=== PATIENT | female | born 1975 | race African-American/Black ===

== ENCOUNTER → 2019-08-08 | Outpatient (CLI) | payer OTHER ==
[~2019-08-08] VITALS: Ht 162.6 cm; Wt 127.0 kg
[~2019-08-08] MED LIST: ADENOSINE 107 MG in GIVE UN-DILUTED 0 ML IV ONE; ADENOSINE 90 MG/30 ML INJ IV ONE
== END | disposition home or self-care (01) ==
LOC: Rad HDHVI 09:07
PROVIDERS: ATTEND Internal Medicine Cardiovascular Disease
DX: I11.9 Hypertensive heart disease without heart failure (principal); E11.9 Type 2 diabetes mellitus without complications; R00.2 Palpitations
CPT/HCPCS: 78452; 93005; 93306; 96374; 96375; A9500; J0153

== ENCOUNTER 2022-12-08 18:51 | Inpatient (IN) | payer OTHER, MEDICAID ==
[~2022-12-08] VITALS: Ht 175.3 cm; Wt 115.0 kg
[2022-12-08 20:05] LABS: Basophils # (auto) 0 10 ^3/uL (0-0.2); Basophils % (auto) 0.3 % (0.0-2.0); Eosinophils # (auto) 0 10 ^3/uL (0-0.8); Hematocrit 39.2 % (36.0-46.0); Hemoglobin 13.4 g/dL (12.2-16.2); Lymphocytes # (auto) 1.8 10 ^3/uL (0.4-5.4); Lymphocytes % (auto) 10.6 % (10.0-50.0); Mean Corpuscular Hemoglobin 30.2 pg (28.0-32.0); Mean Corpuscular Hgb Conc. 34.2 g/dL (32.0-36.0); Mean Corpuscular Volume 88.3 fL (80.0-100.0); Monocytes # (auto) 1.4 10 ^3/uL (0-1.3); Monocytes % (auto) 8.5 % (0.0-12.0); Neutrophils # (auto) 13.5 10 ^3/uL (1.6-8.6); Neutrophils % (auto) 80.6 % (37.0-80.0); Red Blood Cells 4.45 10^6/uL (4.0-5.20); Red Cell Distribution Width 13.6 % (11.8-14.3); White Blood Cell 16.8 10^3/uL (4.4-10.8)
[2022-12-08 20:27] LABS: Alanine Aminotransferase 17 U/L (13-56); Albumin 3.1 g/dL (3.4-5.0); Anion Gap 11 (5-15); Aspartate Aminotransferase 8 U/L (15-37); BUN/Creatinine Ratio 19.9 (10.0-20.0); Blood Urea Nitrogen 32 mg/dL (7-18); Carbon Dioxide 23 mmol/L (21-32); Chloride 99 mmol/L (98-107); GFR African American 44 mL/min; GFR Non-African American 36 mL/min; Glucose 399 mg/dL (74-106); Salicylate < 1.7 mg/dL (2.8-20.0); Sodium 133 mmol/L (136-145)
[2022-12-08 20:29] LABS: Lactic Acid w/Reflex 3.1 mmol/L (0.4-2.0)
[2022-12-08 20:52] LABS: Alkaline Phosphatase 40 U/L (45-117); Bilirubin, Total 0.9 mg/dL (0.2-1.0); Calcium 8.7 mg/dL (8.5-10.1); Total Protein 7.5 g/dL (6.4-8.2)
[2022-12-08 21:12] LABS: Acetaminophen < 2.0 ug/mL (10-30); Blood Alcohol < 3.0 mg/dL (0-5)
[2022-12-09] VITALS (24 sets, daily range): BP systolic 105–172; BP diastolic 50–92
[2022-12-09] MEDS ORDERED: LACTATED RINGER S IV ONE (04:15)
[2022-12-09] MEDS ORDERED: VANCOMYCIN 1GM/250ML 250 ML IV ONE (04:15)
[2022-12-09] MEDS ORDERED: CEFTRIAXONE SODIUM 2 GM in D5W 5% 100 ML IV ONE (04:15)
[2022-12-09] MEDS ORDERED: ACYCLOVIR SOD 50MG/ML 800 MG in SODIUM CHL 0.9% 250 ML IV ONE (04:15)
[2022-12-09] MEDS ORDERED: cefTRIAXone 1GM/50ML D5W 50 ML IV ONE ×2 (04:30)
[2022-12-09 06:54] LABS: Urine Bacteria NONE SEEN /hpf (None Seen); Urine Blood 1+ /uL (Negative); Urine Hyaline Cast FEW /lpf (0 - 2); Urine Mucus FEW (None Seen); Urine Specific Gravity 1.028 (1.001-1.035); Urine WBC 4 /hpf (0 - 5)
[2022-12-09 07:18] LABS: Alcohol, Urine < 3.0 mg/dL (0-10); Amphetamine Screen, Urine NEGATIVE (NEGATIVE); Barbiturate Scree,Urine NEGATIVE (NEGATIVE); Benzodiazephine Screen, Urine NEGATIVE (NEGATIVE); Cannabinoid Screen, Urine NEGATIVE (NEGATIVE); Cocaine Screen, Urine NEGATIVE (NEGATIVE); Opiate Scree,Urine NEGATIVE (NEGATIVE); Phencyclidine Screen, Urine NEGATIVE (NEGATIVE)
[2022-12-09] MEDS ORDERED: DEXTROSE (50%) 50ML SYRG IV PRN (09:00)
[2022-12-09] MEDS ORDERED: VANCOMYCIN PER PHARMACY 0 MG IV SCH (09:15)
[2022-12-09] MEDS ORDERED: NITROGLYCERIN 0.4 MG SL TAB SL PRN (09:15)
[2022-12-09] MEDS ORDERED: MORPHINE SULFATE INJ 2 MG/ml SYRG IV PRN (09:15)
[2022-12-09] MEDS ORDERED: DOCUSATE SOD 100 MG CAP PO PRN (09:15)
[2022-12-09 09:39] LABS: Basophils # (auto) 0.1 10 ^3/uL (0-0.2); Basophils % (auto) 0.6 % (0.0-2.0); Eosinophils # (auto) 0 10 ^3/uL (0-0.8); Eosinophils % (auto) 0.1 % (0.0-7.0); Hematocrit 37.2 % (36.0-46.0); Hemoglobin 12.4 g/dL (12.2-16.2); Lymphocytes # (auto) 1.9 10 ^3/uL (0.4-5.4); Lymphocytes % (auto) 15.2 % (10.0-50.0); Mean Corpuscular Hemoglobin 30.1 pg (28.0-32.0); Mean Corpuscular Hgb Conc. 33.4 g/dL (32.0-36.0); Mean Corpuscular Volume 90.1 fL (80.0-100.0); Monocytes # (auto) 1.2 10 ^3/uL (0-1.3); Monocytes % (auto) 9.4 % (0.0-12.0); Neutrophils # (auto) 9.2 10 ^3/uL (1.6-8.6); Neutrophils % (auto) 74.7 % (37.0-80.0); Nucleated Red Blood Cells % 0.1 %; Red Blood Cells 4.12 10^6/uL (4.0-5.20); Red Cell Distribution Width 13.2 % (11.8-14.3); White Blood Cell 12.3 10^3/uL (4.4-10.8)
[2022-12-09 09:56] LABS: INR 1.03 (0.9-1.15); Partial Thromboplastin Time 24.7 sec (24.6-33.4)
[2022-12-09] MEDS: INSULIN LANTUS (GLARGINE) 1 /0.01ml (100units/ml) SC SCH ×2 (10:00→11:50)
[2022-12-09] MEDS ORDERED: LORazepam 2MG/ML-1ML VIAL IV PRN (10:15)
[2022-12-09 10:18] LABS: BUN/Creatinine Ratio 23.3 (10.0-20.0); Calcium 7.6 mg/dL (8.5-10.1); Potassium 3.8 mmol/L (3.5-5.1)
[2022-12-09] MEDS: ACCU-CHEK COMFORT CURVE STRIP VI SCH ×3 (11:37→19:53)
[2022-12-09] MEDS: InsuLIN REG 1unit/0.01ml Soln (100units/ml) SC SCH ×3 (11:50→19:54)
[2022-12-09] MEDS: SODIUM CHLORIDE 0.9% 1,000 ML IV SCH ×2 (11:51→21:22)
[2022-12-09] MEDS ORDERED: INSU1INJ3 SC (16:31)
[2022-12-09] MEDS ORDERED: METF-371 PO (16:31)
[2022-12-09] MEDS ORDERED: TIZA4TAB7 PO (16:31)
[2022-12-09] MEDS ORDERED: PREG-110 PO (16:31)
[2022-12-09] MEDS ORDERED: HYDR-4072 PO (16:31)
[2022-12-09] MEDS ORDERED: TRAZ50TA2 PO (16:31)
[2022-12-09] MEDS: ACETAMINOPHEN 325 MG TAB PO PRN (17:01)
[2022-12-10] VITALS (17 sets, daily range): BP systolic 98–157; BP diastolic 35–88
[2022-12-10] MEDS: ACCU-CHEK COMFORT CURVE STRIP VI SCH ×6 (00:07→20:00)
[2022-12-10] MEDS: InsuLIN REG 1unit/0.01ml Soln (100units/ml) SC SCH ×6 (00:08→21:19)
[2022-12-10] MEDS: ACETAMINOPHEN 325 MG TAB PO PRN (01:10)
[2022-12-10 04:40] LABS: Basophils # (auto) 0.1 10 ^3/uL (0-0.2); Basophils % (auto) 0.6 % (0.0-2.0); Eosinophils # (auto) 0 10 ^3/uL (0-0.8); Eosinophils % (auto) 0.3 % (0.0-7.0); Hematocrit 31.7 % (36.0-46.0); Hemoglobin 11.3 g/dL (12.2-16.2); Lymphocytes # (auto) 1.8 10 ^3/uL (0.4-5.4); Lymphocytes % (auto) 18.7 % (10.0-50.0); Mean Corpuscular Hemoglobin 31.3 pg (28.0-32.0); Mean Corpuscular Hgb Conc. 35.7 g/dL (32.0-36.0); Mean Corpuscular Volume 87.6 fL (80.0-100.0); Monocytes # (auto) 0.7 10 ^3/uL (0-1.3); Monocytes % (auto) 7.2 % (0.0-12.0); Neutrophils % (auto) 73.2 % (37.0-80.0); Red Blood Cells 3.62 10^6/uL (4.0-5.20); Red Cell Distribution Width 13.2 % (11.8-14.3); White Blood Cell 9.5 10^3/uL (4.4-10.8)
[2022-12-10 04:57] LABS: Calcium 7.4 mg/dL (8.5-10.1); Potassium 3.4 mmol/L (3.5-5.1)
[2022-12-10] MEDS: SODIUM CHLORIDE 0.9% 1,000 ML IV SCH ×2 (06:21→16:06)
[2022-12-10] MEDS: cefTRIAXone 1GM/50ML D5W 50 ML IV SCH (08:06)
[2022-12-10] MEDS: INSULIN LANTUS (GLARGINE) 1 /0.01ml (100units/ml) SC SCH (08:08)
[2022-12-10] MEDS ORDERED: ONDANSETRON HCL 4 MG/2 ML VIAL IV PRN (12:45)
[2022-12-10] MEDS ORDERED: HYDROcodone-ACET 10/325MG TAB PO PRN (12:45)
[2022-12-10] MEDS ORDERED: POTASSIUM CHL 20 Meq TABLET PO ONE (18:15)
[2022-12-10] MEDS ORDERED: INSULIN LANTUS (GLARGINE) 1 /0.01ml (100units/ml) SC ONE (18:15)
[2022-12-11] MEDS: InsuLIN REG 1unit/0.01ml Soln (100units/ml) SC SCH ×4 (00:17→12:05)
[2022-12-11] MEDS: ACCU-CHEK COMFORT CURVE STRIP VI SCH ×4 (00:18→12:03)
[2022-12-11] MEDS: SODIUM CHLORIDE 0.9% 1,000 ML IV SCH ×2 (04:04→11:18)
[2022-12-11 05:00] VITALS: BP 148/68
[2022-12-11 06:17] LABS: BUN/Creatinine Ratio 19.6 (10.0-20.0); Calcium 7.6 mg/dL (8.5-10.1); Potassium 3.5 mmol/L (3.5-5.1)
[2022-12-11 06:35] LABS: Basophils # (auto) 0 10 ^3/uL (0-0.2); Basophils % (auto) 0.3 % (0.0-2.0); Eosinophils # (auto) 0 10 ^3/uL (0-0.8); Eosinophils % (auto) 0.6 % (0.0-7.0); Hematocrit 32.1 % (36.0-46.0); Hemoglobin 11.4 g/dL (12.2-16.2); Lymphocytes # (auto) 1.5 10 ^3/uL (0.4-5.4); Lymphocytes % (auto) 18.1 % (10.0-50.0); Mean Corpuscular Hemoglobin 31.2 pg (28.0-32.0); Mean Corpuscular Hgb Conc. 35.7 g/dL (32.0-36.0); Mean Corpuscular Volume 87.4 fL (80.0-100.0); Monocytes # (auto) 0.5 10 ^3/uL (0-1.3); Monocytes % (auto) 6.3 % (0.0-12.0); Neutrophils # (auto) 6.3 10 ^3/uL (1.6-8.6); Neutrophils % (auto) 74.7 % (37.0-80.0); Nucleated Red Blood Cells % 0.1 %; Red Blood Cells 3.67 10^6/uL (4.0-5.20); Red Cell Distribution Width 13.2 % (11.8-14.3); White Blood Cell 8.4 10^3/uL (4.4-10.8)
[2022-12-11 08:32] VITALS: BP 155/83
[2022-12-11] MEDS: cefTRIAXone 1GM/50ML D5W 50 ML IV SCH (09:15)
[2022-12-11] MEDS ORDERED: INSULIN LANTUS (GLARGINE) 1 /0.01ml (100units/ml) SC SCH (10:00)
[2022-12-11] MEDS ORDERED: AZIT250T8 PO (12:56)
[2022-12-11 13:00] VITALS: BP 178/66
[2022-12-11] MEDS ORDERED: INSU1INJ3 SC (13:56)
== END 2022-12-11 14:58 | disposition home or self-care (01) | DRG 70 ==
LOC: EDBD 18:51 → ER 19:01 → TELE 12-09 09:15 → DOU IN ICU 12-09 10:50 → TELE-EAST 12-10 22:30
PROVIDERS: ADMIT Internal Medicine; ATTEND Internal Medicine
DX: G93.41 Metabolic encephalopathy (principal); E11.00 Type 2 diabetes mellitus with hyperosmolarity without nonketotic hyperglycemic-hyperosmolar coma (NKHHC); G04.90 Encephalitis and encephalomyelitis, unspecified; E87.1 Hypo-osmolality and hyponatremia; E87.20 Acidosis, unspecified; N17.9 Acute kidney failure, unspecified; Z68.41 Body mass index [BMI] 40.0-44.9, adult; E66.01 Morbid (severe) obesity due to excess calories; I10 Essential (primary) hypertension; E87.6 Hypokalemia; Z79.4 Long term (current) use of insulin; Z88.0 Allergy status to penicillin; Z88.1 Allergy status to other antibiotic agents; Z91.010 Allergy to peanuts; Z88.8 Allergy status to other drugs, medicaments and biological substances
CPT/HCPCS: 36415; 70450; 70551; 71045; 80048; 80053; 80307; 80320; 80329; 81001; 82010; 82962; 83605; 84484; 85025; 85610; 85730; 87040; 87081; 93005; 93306; 96365; 96366; 99291; G0378; J0696; J1815; J7060

== ENCOUNTER 2022-12-11 18:12 | Emergency (ER) | payer OTHER, MEDICAID ==
[~2022-12-11 18:12] MED LIST changes: -ADENOSINE 107 MG in GIVE UN-DILUTED 0 ML IV ONE; -ADENOSINE 90 MG/30 ML INJ IV ONE; +AZIT-81 PO; +HYDR-4072 PO; +INSU1INJ3 SC; +METF-371 PO; +PREG-110 PO; +TIZA-142 PO; +TRAZ-227 PO
[2022-12-11 18:54] VITALS: BP 151/77
== END 2022-12-11 18:53 | disposition home or self-care (01) ==
LOC: ER 18:12 → EDBD 18:12 → ER 18:53
DX: R41.0 Disorientation, unspecified (principal); Z53.21 Procedure and treatment not carried out due to patient leaving prior to being seen by health care provider